=== PATIENT | female | born 1930 | race Caucasian/White ===

== ENCOUNTER 2019-01-07 15:37 | Inpatient (IN) | payer MEDICARE ==
[2019-01-07] MEDS ORDERED: Ondansetron PF 4 MG/2 ML Vial ONE ×2 (16:01→17:35)
[2019-01-07] MEDS ORDERED: Acetaminophen 500 MG TAB ONE (16:01)
[2019-01-07 16:54] LABS: Bilirubin Negative (Negative); Blood, Urine Negative (Negative); Clarity CLEAR (Clear); Glucose, Urine (Dipstick) Negative (Negative); Leukocyte Negative (Negative); Nitrite Negative (Negative); Protein, Urine (Dipstick) 30 mg/dL (Neg-Trace); Specific Gravity, Urine 1.011 (1.002-1.036); Urobilinogen 0.2 mg/dL (0.2-1.0)
[2019-01-07 16:56] LABS: Bacteria/HPF None Seen HPF (None Seen); Hyaline Casts/LPF 0-3 HYALINE CAST LPF (0-3 Hyaline); RBC/HPF 0-3 HPF (0-3); Squamous Epithelial None Seen HPF (0-3); WBC/HPF None Seen HPF (0-3)
[2019-01-07] MEDS ORDERED: hydrALAZINE 20 MG/ML VIAL ONE (17:21)
[2019-01-07] MEDS ORDERED: Dextrose 50% Abboject 50 ML SYRINGE SLOW IVP PRN (18:27)
[2019-01-07] MEDS ORDERED: hydrALAZINE 20 MG/ML VIAL SLOW IVP PRN (18:27)
[2019-01-07] MEDS ORDERED: Promethazine HCl 25 MG/ML VIAL IM PRN (18:27)
[2019-01-07] MEDS ORDERED: Ondansetron PF 4 MG/2 ML Vial IVP PRN (18:27)
[2019-01-07] MEDS ORDERED: traMADol HCl 50 MG TAB PO PRN ×2 (18:27)
[2019-01-07] MEDS ORDERED: Dextrose 5% in Water 1,000 ML IV PRN (18:27)
[2019-01-07] MEDS ORDERED: Acetaminophen 1,000 MG in Premix Bag 1 BAG IVPB SCH (18:27)
[2019-01-07] MEDS ORDERED: Promethazine HCl 25 MG/ML VIAL IVPB PRN (19:42)
--- NOTE | 2019-01-07 19:42 | HP ---
TRAUMA SURGEON: Dr. Nicolás Hedrick. CONSULTING PHYSICIAN: Dr. Hensley. HISTORY OF PRESENT ILLNESS: Ms. Roa is an 88-year-old female patient, who was transferred to our emergency department from [place]. Today, she was at [employer] and walked to her car without her cane, and when she came back to the building, she reports falling. She is unsure of the cause of her fall and she is unsure if she had a syncopal event. She reports that she did not hit her head; however, is having concussive type symptoms today. She was not able to ambulate after the accident and was found by other people leaving the [employer]. She arrived to the outside hospital ED via ambulance and received a chest x-ray as well as x-rays of the hip and pelvis. She also had a CT of the head and C-spine. Imaging results demonstrated a right femoral neck fracture. The patient is also very hypertensive with a systolic from the 200 and received pain medication with morphine, that did not significantly decrease her blood pressure below systolics of 180s. She did receive also an EKG, which demonstrated a normal rhythm with no ST changes and no ectopy. She denies photophobia or vomiting, but she does say that she is nauseous. She also denies diarrhea. REVIEW OF SYSTEMS: All additional review of systems negative except as indicated above. PAST MEDICAL HISTORY: Significant for DIANE (Mycobacterium avium intracellulare)as well as spinal stenosis. The patient is also taking a carvedilol, but is unsure of any previous cardiac issues. She does see a doctor regularly, but is not sure of why she takes carvedilol daily. ALLERGIES: NO KNOWN DRUG ALLERGIES. PAST SURGICAL HISTORY: She has had 2 spine surgeries for spinal stenosis and a herniated disk. She has also had a cholecystectomy. She has had bilateral mastectomies and a left hip surgery. SOCIAL HISTORY: She lives at home alone and uses a cane. She is very active and drives herself. She denies tobacco, alcohol, or drug use. MEDICATIONS: 1. Gabapentin. 2. Creon. 3. Omeprazole. 4. Carvedilol. 5. Multivitamin. PHYSICAL EXAMINATION: VITAL SIGNS: Temperature 98, blood pressure 174/86, pulse 98, respirations 20, and oxygen saturation 98% on 2L nasal cannula. PRIMARY SURVEY: Airway intact. Adequate breath sounds bilaterally. 2+ distal pulses in radials, femorals, and DP bilaterally. GCS is 15. Gross motor and sensation intact. No lacerations or external bleeding noted, bruising to the right elbow. SECONDARY ASSESSMENT: HEAD: Normocephalic and atraumatic. No gross palpable skull deformities or tenderness. EYES: Pupils 3 to 2, equal, round, reactive to light. ENT: No hemotympanum. No epistaxis. No septal hematoma. Midface stable to manipulation. No blood in the oropharynx. Dentition intact. No anterior neck injury/crepitus/tenderness. C-SPINE: No step-offs or deformities. Nontender. C-collar not in place. CHEST: Nontender. No crepitus. No abrasions or ecchymosis. Equal chest rise and fall. ABDOMEN: Soft, nontender, and nondistended. PELVIS: Stable to manipulation. Tenderness to the right hip. No abrasions or ecchymosis noted. RECTAL: Deferred. GENITOURINARY: Deferred. EXTREMITIES: Shortening of the right lower extremity. No abrasions or ecchymosis noted to the bilateral lower extremities. Bruising at the right elbow with no tenderness. 2+ radial/femoral/DP/PT pulses present bilaterally. BACK OR SPINE: No step-offs or deformities or tenderness to palpation of the thoracic or lumbar spine. No abrasions or ecchymosis noted. NEUROLOGIC: GCS is 15, 5/5 strength in bilateral artificial flowers starcher, plantar flexion, and dorsiflexion. Gross normal sensation x4 extremities. LABORATORY FINDINGS: White blood cell count 14.7, hemoglobin 12, hematocrit 36.7, and platelets 234. Sodium 137, potassium 4.3, chloride 100, carbon dioxide 25, BUN 16, creatinine 0.85, and glucose 98. INR 1.0. Troponin less than 0.010. BNP 203.9. CK 220. UA is not significant and negative. DIAGNOSTIC FINDINGS: Chest x-ray demonstrates no evidence of acute cardiopulmonary disease. X-ray of the right hip demonstrates a right femoral neck fracture. X-ray of the pelvis demonstrates an acute right femoral neck fracture. CT of the brain demonstrates no evidence of acute intracranial abnormalities. CT of the C-spine demonstrates no evidence of acute osseous abnormalities of the cervical spine. EKG demonstrated regular rate and rhythm with no ST changes or ectopy noted. ASSESSMENT: 1. Unwitnessed ground-level fall. 2. Right femoral neck fracture. 3. Hypertension, no previous history. 4. History of Mycobacterium avium intracellulare. 5. Spinal stenosis. 6. Acute traumatic pain. PLAN: The patient is pending evaluation by the orthopedic surgery team, but will likely go to the OR tomorrow. She can have a diet tonight and will be n.p.o. after midnight and will receive normal saline at 75 an hour. She did receive Ofirmev in the emergency department as well as 10 mg of IV hydralazine for blood pressure control. P.r.n. hydralazine will also be continued on the floor. She will receive pain control with IV Ofirmev, ibuprofen, and tramadol on the floor. She will also start her home dose of gabapentin, which is 300 mg in the morning and 900 mg in the evening. We will hold all other home medications at this time. She will be admitted to the tele department and needs to have an echo completed and read before she is able to go to the operating room with Orthopedic Surgery. We will hold the chemo DVT prophylaxis at this time. Physical and Occupational Therapy will see the patient postoperatively for discharge planning. She will either need to go to a snf facility or rehab facility as she is unable to return home after this type of injury. The patient was seen and examined with Dr. Hedrick today in the emergency department. Job ID: [id number]
[2019-01-07] MEDS: Sodium Chloride 0.9% 1,000 ML IV SCH (19:44)
[2019-01-07] MEDS: Senokot S 8.6-50 MG TAB PO SCH (19:45)
[2019-01-07] MEDS: Ibuprofen 600 MG TAB PO SCH (19:46)
[2019-01-07] MEDS ORDERED: Morphine 4 MG/ML VIAL SLOW IVP PRN (19:57)
[2019-01-07] MEDS ORDERED: Gabapentin 300 MG CAP PO SCH (20:00)
[2019-01-07] MEDS ORDERED: Ketorolac Tromethamine 30 MG/ML VIAL IVP SCH (20:00)
[2019-01-07] MEDS ORDERED: Promethazine HCl 12.5 MG in Sodium Chloride 0.9% 50 ML IVPB PRN (20:00)
[2019-01-07] MEDS ORDERED: Famotidine/PF 20 mg/2ml Vial SLOW IVP SCH (21:00)
[2019-01-07] MEDS ORDERED: Scopolamine 1.5 mg/72 hour Patch TD SCH (21:00)
[2019-01-07 23:17] VITALS: BMI 15.8
[2019-01-08] MEDS: Acetaminophen 1,000 MG in Premix Bag 1 BAG IVPB SCH ×5 (00:36→23:05)
[2019-01-08] MEDS: Ibuprofen 600 MG TAB PO SCH ×3 (05:35→22:30)
[2019-01-08 05:46] LABS: #Basophils 0.1 thou/uL (0.0-0.2); #Eosinphils 0.4 thou/uL (0.0-0.7); #Lymphocytes 1.6 thou/uL (1.20-3.40); #Monocytes 0.8 thou/uL (0.11-0.59); #Neutrophils 10.1 thou/uL (1.40-6.50); %Basophils 0.6 % (0.0-1.0); %Eosinophils 3.2 % (0.0-10.0); %Lymphocytes 12.1 % (21.0-51.0); %Monocytes 5.9 % (0.0-10.0); %Neutrophils 78.2 % (42.0-75.0); Hemoglobin 11.2 g/dL (12.0-16.0); Mean Corpuscular HGB CONC 31.8 g/dL (32.0-36.0); Mean Corpuscular Hemoglobin 30.7 pg (27.0-31.0); Mean Corpuscular Volume 96.6 fL (78.0-98.0); Platelet Count 295 thou/uL (130-400); RBC Distribution Width 12.6 % (11.5-14.5); Red Blood Cell (RBC) Count 3.65 mill/uL (4.20-5.40); White Blood Cell (WBC) Count 12.9 thou/uL (4.8-10.8)
[2019-01-08 05:53] LABS: INR-International Normal Ratio 1.1; Prothrombin Time 14.4 SEC (12.0-14.7)
[2019-01-08 06:17] LABS: Anion Gap 12 mmol/L (10-20); BUN (Urea Nitrogen) 16 mg/dL (9.8-20.1); Calc. Creatinine Clearance 28 mL/min (70-130); Calcium 8.2 mg/dL (7.8-10.44); Carbon Dioxide 24 mmol/L (23-31); Chloride 101 mmol/L (98-107); Estimated GFR-MDRD 61; Glucose 76 mg/dL (83-110); Magnesium 1.6 mg/dL (1.6-2.6); Phosphorus 4.2 mg/dL (2.3-4.7); Potassium 4.3 mmol/L (3.5-5.1); Sodium 133 mmol/L (136-145)
[2019-01-08] MEDS ORDERED: Magnesium 2 GM/50 ML 2 GM in Premix Bag 1 BAG IVPB SCH (08:15)
[2019-01-08] MEDS ORDERED: CEFAZOLIN 2 GM/50 ML BAG IVPB SCH (09:00)
[2019-01-08] MEDS ORDERED: Prevnar 13-Val Conj/PF 0.5 ML SYRINGE IM ONE (09:00)
[2019-01-08] MEDS: Polyethylene Glycol 3350 17 GM Packet PO SCH (09:17)
[2019-01-08] MEDS: Senokot S 8.6-50 MG TAB PO SCH ×2 (09:17→20:25)
[2019-01-08] MEDS: Gabapentin 300 MG CAP PO SCH ×2 (09:19→19:55)
--- NOTE | 2019-01-08 09:33 | CON ---
DATE OF CONSULTATION: 01/07/2019 CONSULTING PHYSICIAN: Dr. Hedrick. HISTORY OF PRESENT ILLNESS: Ms. Roa is an 88-year-old female, who was transferred from [facility]. The patient lives independently. She uses a cane for balance. She was at [employer] today when she lost her balance and fell outside the [employer]. She landed on the sidewalk. She had immediate pain. She was unable to ambulate. She did not hit her head. She does not clearly remember the events of the accident, however. She was transferred for further care and found to have a femoral neck fracture of the right hip. She is comfortable currently. Her blood pressure has been high and she does have a headache currently. REVIEW OF SYSTEMS: Positive for right hip pain and headache, also nausea. Otherwise, negative 10-point review of systems. PAST MEDICAL HISTORY: COPD, spinal stenosis, and possible heart disease. ALLERGIES: NO KNOWN DRUG ALLERGIES. PAST SURGICAL HISTORY: Lumbar spinal surgery for herniated disk, cholecystectomy. She has had mastectomy and implants and left hip bipolar hemiarthroplasty. SOCIAL HISTORY: The patient lives independently. She denies tobacco, alcohol, or drug use. DIAGNOSTIC DATA: X-rays of the pelvis and hips demonstrate a right femoral neck fracture, which is acute and slightly displaced. She has a left hip hemiarthroplasty in place without complication. PHYSICAL EXAMINATION: VITAL SIGNS: Temperature is 97.9, pulse is 86, respiratory rate 17, oxygen saturation 94%, and blood pressure is 184/79. GENERAL: She is alert and oriented, lying supine. She is nauseous. HEENT: Normocephalic and atraumatic. RESPIRATORY: Breathing comfortably. ABDOMEN: Soft, nontender, and nondistended. MUSCULOSKELETAL: The patient's right lower extremity has pain with motion. She has some slight shortening. She is able to flex and extend the foot and ankle. She has a palpable dorsalis pedis pulse. Upper extremities are atraumatic as well as the left lower extremity. IMPRESSION: Elderly female, who is a community ambulator with an acute femoral neck fracture of right hip. PLAN: The patient will need to go to the operating room. I discussed operative treatment, which would include bipolar hemiarthroplasty. I think this would be a best option. Screw fixation would have a high concern for failure. She wants to proceed with this. She will need medical optimization prior to surgery and an echocardiogram has been ordered. She needs blood pressure control as well. She will have pain control. She will have DVT prophylaxis and antibiotic prophylaxis. Job ID: [id number]
[2019-01-08] MEDS: Sodium Chloride 0.9% 1,000 ML IV SCH ×2 (10:01→19:50)
[2019-01-08] MEDS ORDERED: CEFAZOLIN 2 GM/50 ML BAG ONE (13:03)
[2019-01-08] MEDS ORDERED: Fentanyl 250 MCG/5 ML VIAL ONE (14:34)
--- NOTE | 2019-01-08 14:40 | PRG ---
DATE OF SERVICE: 01/08/2019 SUBJECTIVE: The patient was seen this morning sitting up in bed with family at bedside. No significant signs of distress, but reported some mild persistent nausea overnight. N.p.o. since midnight for OR today with Dr. Hensley. Echo pending with telemetry currently on. The patient denies vomiting, diarrhea, or abdominal pain. PHYSICAL EXAMINATION: VITAL SIGNS: Temperature 98.5, pulse 82, respirations 16, oxygen saturation 98% on 2 L nasal cannula, blood pressure 166/77. GENERAL: Alert and oriented, well-appearing elderly female, sitting up in bed. NEURO: GCS is 15. Alert and oriented x3. Gross motor and sensation intact. Pupils equal, round, reactive to light. PULMONARY: No signs of acute distress. Equal chest rise and fall. Lung waller clear bilaterally. HEART: Regular rate and rhythm. No murmurs, gallops, or rubs. GASTROINTESTINAL: Soft, nontender, nondistended with positive bowel sounds. EXTREMITIES: Gross motor and sensation intact. Tenderness to right femur area. 2+ pulses in all extremities. No significant swelling noted. LABORATORY FINDINGS: White blood cell count 11.9, hemoglobin 11.2, hematocrit 35.2, platelets 295. Sodium 133, potassium 4.3, chloride 101, carbon dioxide 26, BUN 16, creatinine 0.87, glucose 76, phos 4.2, magnesium 1.8. DIAGNOSTIC FINDINGS: Echo demonstrates LVEF estimated 55% to 60%. EA flow reversal noted suggestive of diastolic dysfunction, mild mitral regurg present, moderate tricuspid regurg, moderately elevated pulmonary artery pressure. ASSESSMENT: 1. Unwitnessed ground level fall. 2. Right femoral neck fracture. 3. Hypertension, no previous injury, improving now. 4. History of mycobacterium avium intracellulare. 5. History of spinal stenosis. 6. Acute traumatic pain. 7. Hypomagnesemia. PLAN: The patient is to go to the OR today with Dr. Hensley for fixation of her right femoral neck fracture. We will continue telemetry monitoring for now. Troponins previously negative. We will start her home medications postoperatively. Can have a regular diet and will discontinue IV fluids postoperatively. Physical and Occupational Therapy will see the patient postoperatively and complete rehab screen as well. The patient was seen and examined by Dr. Moran this morning during rounds. Job ID: [id number]
[2019-01-08] MEDS ORDERED: Ketamine 50 MG/ML (10ML VIAL) ONE (14:52)
[2019-01-08] MEDS ORDERED: CEFAZOLIN/Water 2 GM/20 ML SYRINGE SLOW IVP SCH (16:00)
[2019-01-08] MEDS ORDERED: Albuterol Sulfate HFA (OR ONLY) ONE (16:10)
[2019-01-08] MEDS ORDERED: Rocuronium Bromide 10 MG/ML (10ML VIAL) ONE (16:27)
[2019-01-08] MEDS ORDERED: Ondansetron PF 4 MG/2 ML Vial ONE (16:27)
[2019-01-08] MEDS ORDERED: Lidocaine 1% PF 5 ML VIAL ONE (16:27)
[2019-01-08] MEDS ORDERED: Glycopyrrolate 0.2 MG/ML 5 ML SYRINGE ONE (16:27)
[2019-01-08] MEDS ORDERED: PHENYLEPHRINE-NS 100 MCG/ML 10 ML SYRINGE ONE (16:27)
[2019-01-08] MEDS ORDERED: PROVENTIL INHALER 6.7 G (200 INHALATIONS) ONE (16:27)
[2019-01-08] MEDS ORDERED: hydrALAZINE 20 MG/ML VIAL ONE (16:28)
[2019-01-08] MEDS ORDERED: Fentanyl 100 MCG/2 ML VIAL ONE ×2 (16:33→17:17)
--- NOTE | 2019-01-08 16:39 | RAD ---
1 VIEW RIGHT HIP: Date: 01/08/19 HISTORY: Status post arthroplasty. FINDINGS: Based on this single image provided, no obvious malalignment. There are expected postoperative change s. IMPRESSION: Expected postoperative changes. POS: [facility]
--- NOTE | 2019-01-08 16:42 | RAD ---
1 VIEW PELVIS: Date: 01/08/19 HISTORY: Status post right hip arthroplasty. COMPARISON: 01/07/19. FINDINGS: There are expected postoperative changes compatible with right hip arthroplasty. Based on the image p rovided, no malalignment. IMPRESSION: Right hip arthroplasty change. POS: [facility]
[2019-01-08] MEDS: Pancrelipase DR 12000 1 CAP PO SCH (17:30)
[2019-01-08] MEDS: Mometasone/Formoterol 120 PUFF INHALER INH SCH (19:00)
[2019-01-08] MEDS: CEFAZOLIN 2 GM/50 ML-DEXTROSE 2 GM in Premix Bag 1 BAG IVPB SCH (19:51)
[2019-01-08] MEDS: Vit A,C & E/Lutein/Minerals Tablet PO SCH (20:25)
[2019-01-08] MEDS ORDERED: Gabapentin 300 MG CAP PO SCH (21:00)
[2019-01-08] MEDS ORDERED: Famotidine/PF 20 mg/2ml Vial SLOW IVP SCH (21:00)
--- NOTE | 2019-01-08 22:40 | OP ---
DATE OF PROCEDURE: 01/08/2019 OPERATION: Right hip bipolar hemiarthroplasty. PREOPERATIVE DIAGNOSIS: Right femoral neck fracture. POSTOPERATIVE DIAGNOSIS: Right femoral neck fracture. COMPLICATIONS: None. ESTIMATED BLOOD LOSS: 100 mL. COLLARETTE SEPARATOR: Davis Julio. INDICATIONS: Ms. Roa is an 88-year-old female who fell. She fractured her right femoral neck. She was indicated for bipolar hemiarthroplasty to restore anatomic alignment and promote healing. Goal of surgery is to promote early mobilization. At this point, the patient was taken to the operating room. Her right lower extremity was prepped and draped in sterile fashion in the lateral decubitus position. She was given intravenous antibiotics. She was sterilely draped. At this point, we made a posterior incision. We dissected down through the subcutaneous tissues to the fascia, which was incised. We then subperiosteally divided the short external rotators from the proximal femur. We then exposed the underlying hip capsule which was incised. Next, we removed the broken femoral head. We performed an osteotomy of the femoral neck. We then prepared the femur. We reamed the femur up to a size 6. We then broached the femur to a size 6. We trialed off our size 6 broach. At this point, we proceeded to check range of motion and stability with a +1.5 femoral head. The hip was stable. At this point, we then removed all trial components. We placed our final components appropriately. We reduced the hip. We then closed the Ethibond sutures through drill holes for the capsule and piriformis. We then closed the fascia and subcutaneous tissue. The patient was taken to the recovery room in good condition without complication. Job ID: [id number]
[2019-01-09] MEDS: CEFAZOLIN 2 GM/50 ML-DEXTROSE 2 GM in Premix Bag 1 BAG IVPB SCH (05:07)
[2019-01-09] MEDS: Ibuprofen 600 MG TAB PO SCH ×2 (05:50→08:30)
[2019-01-09 06:51] LABS: #Lymphocytes 0.8 thou/uL (1.20-3.40); #Monocytes 0.8 thou/uL (0.11-0.59); #Neutrophils 12.4 thou/uL (1.40-6.50); %Basophils 0.1 % (0.0-1.0); %Eosinophils 0.1 % (0.0-10.0); %Monocytes 5.6 % (0.0-10.0); %Neutrophils 88.3 % (42.0-75.0); Hemoglobin 8.7 g/dL (12.0-16.0); Mean Corpuscular Volume 97.1 fL (78.0-98.0); Mean Platelet Volume 6.8 fL (7.4-10.4); Platelet Count 267 thou/uL (130-400); RBC Distribution Width 12.5 % (11.5-14.5)
[2019-01-09 07:15] LABS: Anion Gap 13 mmol/L (10-20); BUN (Urea Nitrogen) 25 mg/dL (9.8-20.1); Calc. Creatinine Clearance 24 mL/min (70-130); Calcium 7.9 mg/dL (7.8-10.44); Carbon Dioxide 20 mmol/L (23-31); Chloride 105 mmol/L (98-107); Estimated GFR-MDRD 51; Glucose 100 mg/dL (83-110); Phosphorus 4.8 mg/dL (2.3-4.7); Potassium 4.4 mmol/L (3.5-5.1); Sodium 134 mmol/L (136-145)
[2019-01-09] MEDS: Mometasone/Formoterol 120 PUFF INHALER INH SCH ×2 (07:52→18:40)
[2019-01-09] MEDS: Vit A,C & E/Lutein/Minerals Tablet PO SCH ×2 (08:29→20:42)
[2019-01-09] MEDS: Acetaminophen 500 MG TAB PO SCH ×3 (08:29→20:42)
[2019-01-09] MEDS: Gabapentin 300 MG CAP PO SCH ×2 (08:30→20:42)
[2019-01-09] MEDS: Ascorbic Acid 500 mg Chewable Tablet PO SCH (08:30)
[2019-01-09] MEDS: Senokot S 8.6-50 MG TAB PO SCH ×2 (08:31→20:42)
[2019-01-09] MEDS: Cyanocobalamin (Vitamin B-12) 1,000 MCG TAB PO SCH (08:32)
[2019-01-09] MEDS ORDERED: Ibuprofen 100 MG/5 ML UDCUP PO PRN (08:47)
[2019-01-09] MEDS: Pancrelipase DR 12000 1 CAP PO SCH ×2 (10:06→18:32)
[2019-01-09] MEDS: Polyethylene Glycol 3350 17 GM Packet PO SCH (10:22)
[2019-01-09] MEDS ORDERED: Ondansetron ODT 4 MG TAB PO PRN (11:59)
--- NOTE | 2019-01-09 14:07 | PRG ---
DATE OF SERVICE: 01/09/2019 SUBJECTIVE: This is an 88-year-old female, status post fall from standing with right femoral neck fracture, postoperative day #1, status post right hip hemiarthroplasty with Dr. Hensley. No acute events overnight. The patient has no complaints this morning, denying any problems breathing and pain that is well controlled. She has been able to tolerate her breakfast this morning, has not eaten most of it. OBJECTIVE: VITAL SIGNS: Temperature 97.8, pulse 88, respirations 18, O2 sat 99 on 2 L of nasal cannula, and blood pressure 113/56. GENERAL: The patient is resting comfortably, sitting up in her chair. She is just finishing breakfast. HEENT: Normocephalic, atraumatic. Unremarkable otherwise. Placement on nasal cannula in place. CARDIOVASCULAR: Regular rate and rhythm with no murmurs, rubs, or gallops. RESPIRATORY: No signs of acute respiratory distress, equal rise and fall of chest. ABDOMEN: Soft, nontender. EXTREMITIES: The patient with postop dressings in place around the right hip and leg. Gross movement of all 4 extremities. LABORATORY DATA: WBC 14, hemoglobin 8.7, hematocrit 27.2, and neutrophils 88.3. Chem; sodium 134, carbon dioxide 20, BUN 25, creatinine 1.02, GFR 51, potassium 4.4, phosphorus 4.8, and magnesium 2.0. ASSESSMENT: 1. Unwitnessed ground level fall. 2. Right femoral neck fracture, postop day status post right hip hemiarthroplasty. 3. Hypertension. 4. History of spinal stenosis. 5. Hyponatremia, stable. 6. Anion gap metabolic acidosis. 7. Normocytic anemia. PLAN: 1. Continue current pain regimen as she is well controlled. We will discontinue her IV drugs. We will start her on oral p.o. pain medications. 2. Continue diet, since the patient is tolerating. We will discontinue IV fluids. 3. Hypertension. We will continue home Coreg due to blood pressures running low. holding if SBP less than 120 and/or if heart rate less than 60. 4. We will discontinue Robledo. 5. Wean O2 as tolerated as the patient did not have her requirements upon admission. She is nonhypoxic on 2 L to 3 L. This patient was seen and assessed by Dr. Nicolás Hedrick, who agrees with the plan above. Job ID: [id number] [facility]ENTERJulia
[2019-01-09] MEDS: Carvedilol 3.125 MG TAB PO SCH (15:29)
[2019-01-09] MEDS: Sodium Chloride 0.9% 1,000 ML IV SCH (16:35)
[2019-01-10] MEDS: Acetaminophen 500 MG TAB PO SCH ×2 (04:16→09:22)
[2019-01-10] MEDS: Mometasone/Formoterol 120 PUFF INHALER INH SCH (06:14)
[2019-01-10] MEDS ORDERED: Aspirin 81 mg Enteric Coated Tablet PO SCH (09:00)
[2019-01-10] MEDS: Polyethylene Glycol 3350 17 GM Packet PO SCH (09:22)
[2019-01-10] MEDS: Ascorbic Acid 500 mg Chewable Tablet PO SCH (09:22)
[2019-01-10] MEDS: Pancrelipase DR 12000 1 CAP PO SCH (09:22)
[2019-01-10] MEDS: Carvedilol 3.125 MG TAB PO SCH (09:23)
[2019-01-10] MEDS: Senokot S 8.6-50 MG TAB PO SCH (09:23)
[2019-01-10] MEDS: Vit A,C & E/Lutein/Minerals Tablet PO SCH (09:23)
[2019-01-10] MEDS: Cyanocobalamin (Vitamin B-12) 1,000 MCG TAB PO SCH (09:24)
[2019-01-10] MEDS: Gabapentin 300 MG CAP PO SCH (09:24)
[2019-01-10 11:44] VITALS: BP 137/73; TEMP 98
--- NOTE | 2019-01-11 08:49 | DIS ---
DATE OF ADMISSION: 01/07/2019 DATE OF DISCHARGE: 01/10/2019 ADMITTING ATTENDING: Nicolás Hedrick DO DISCHARGE ATTENDING: Nicolás Hedrick DO CONSULTS: 1. Orthopedics, Dr. Elliott Hensley. 2. PT and OT. PROCEDURE: Right hip bipolar hemiarthroplasty, 12/29/2018. IMAGING: Hip and pelvis x-ray: Right femoral neck fracture. PRIMARY DIAGNOSES: 1. Acute right femoral neck fracture. 2. Ground level fall. SECONDARY DIAGNOSES: 1. History of Mycobacterium avium intracellulare. 2. Spinal stenosis. 3. Hypertension. DISCHARGE MEDICATIONS: 1. Tylenol 500 mg p.o. q.6 hours p.r.n. for pain. 2. Vitamin C 1000 mg p.o. daily. 3. Aspirin 81 mg p.o. b.i.d. 4. Symbicort 2 puffs inhaled b.i.d. 5. Coreg 3.125 p.o. daily. 6. Vitamin B12 of 500 mg p.o. daily. 7. Gabapentin 300 mg p.o. daily, 900 mg p.o. at bedtime. 8. Hydralazine 10 mg p.o. IV push q.4 hours p.r.n. for blood pressure greater than 180. 9. DuoNeb 3 mL nebs q.4 hours p.r.n. for short of breath and wheezing. 10. Omeprazole 20 mg p.o. daily. 11. Creon one cap p.o. b.i.d. with meal. 12. Scopolamine patch 1.5 mg transdermal q.3 days. 13. MiraLAX 17 g p.o. daily. 14. Ultram 50 mg p.o. q.6 hours for severe pain. 15. Ultram 100 mg p.o. q.6 hours for breakthrough pain. 16. PreserVision one capsule p.o. b.i.d. MEDICATION CHANGES: 1. Home dose of Coreg was held due to low-normal blood pressure. Can resume in inpatient rehab as appropriate HISTORY OF PRESENT ILLNESS/HOSPITAL COURSE: Ms. Roa is an 88-year-old female patient, who was transferred to the emergency department from [place] after ground-level fall. She suffered from a right femoral neck fracture. Etiology of fall was unknown likely attributed to overall physical/gait instability. However, echo performed before surgery and was negative for acute or chronic cardiac findings. She received a right hip hemiarthroplasty with Dr. Hensley. Postoperative course was uncomplicated and the patient recovered well with good control of pain. Currently, she is stable to go for inpatient rehab for continued physical therapy. DISPOSITION: Stable. DISCHARGE INSTRUCTIONS: 1. Location: Home. 2. Diet: Regular diet. 3. Activity: As tolerated, please continue working with physical therapy. 4. Followup: a. Please follow up with PCP within 7 days. b. Please follow up with Orthopedic Surgeon, Dr. Elliott Hensley within 2 weeks. Job ID: [id number] [facility]
== END 2019-01-10 13:05 | disposition short-term general hospital (02) | DRG 470 ==
LOC: ERS 15:37 → 2NO 19:05 → SURG A 01-08 16:18
PROVIDERS: ADMIT Surgery; ATTEND Surgery
PROC: 0SRR0JZ Replacement of Right Hip Joint, Femoral Surface with Synthetic Substitute, Open Approach (ICD-10-PCS; principal; 2019-01-08)
DX: S72.001A Fracture of unspecified part of neck of right femur, initial encounter for closed fracture (principal); E87.2 Acidosis; E87.1 Hypo-osmolality and hyponatremia; I10 Essential (primary) hypertension; M48.00 Spinal stenosis, site unspecified; D64.9 Anemia, unspecified; W19.XXXA Unspecified fall, initial encounter; E83.42 Hypomagnesemia; J44.9 Chronic obstructive pulmonary disease, unspecified; Z90.49 Acquired absence of other specified parts of digestive tract; Z90.10 Acquired absence of unspecified breast and nipple; Z96.642 Presence of left artificial hip joint
CPT/HCPCS: 36415; 51702; 72170; 80048; 81003; 81015; 82550; 83735; 83880; 84100; 84484; 85025; 86850; 86900; 86901; 93005; 93306; 96361; 96374; 96375; 96376; G0390; J0131; J0360; J1885; J2001; J2270; J2405; J2550; J3010; J3475; J3490; J7050; S0028

== ENCOUNTER 2019-01-30 10:26 | Inpatient (IN) | payer MEDICARE ==
[~2019-01-30 10:26] MED LIST: ISOVUE-370 76%-LOCM 1 ML ONE
[2019-01-30 11:29] LABS: #Lymphocytes 0.6 thou/uL (1.20-3.40); #Monocytes 0.1 thou/uL (0.11-0.59); #Neutrophils 7.9 thou/uL (1.40-6.50); %Eosinophils 0.1 % (0.0-10.0); %Lymphocytes 6.4 % (21.0-51.0); %Monocytes 0.9 % (0.0-10.0); %Neutrophils 92.6 % (42.0-75.0); Hemoglobin 8.8 g/dL (12.0-16.0); Mean Corpuscular HGB CONC 30.3 g/dL (32.0-36.0); Mean Corpuscular Hemoglobin 29.9 pg (27.0-31.0); Mean Corpuscular Volume 98.8 fL (78.0-98.0); Mean Platelet Volume 6.3 fL (7.4-10.4); Platelet Count 569 thou/uL (130-400); RBC Distribution Width 14.2 % (11.5-14.5); Red Blood Cell (RBC) Count 2.94 mill/uL (4.20-5.40); White Blood Cell (WBC) Count 8.5 thou/uL (4.8-10.8)
[2019-01-30] MEDS ORDERED: Aspirin Chewable 81 MG TAB ONE (11:40)
[2019-01-30 11:46] LABS: PTT 41.4 SEC (22.9-36.1)
[2019-01-30 11:52] LABS: ALT (SGPT) 19 U/L (8-55); AST (SGOT) 39 U/L (5-34); Albumin 3.5 g/dL (3.4-4.8); Alkaline Phosphatase 89 U/L (40-150); Anion Gap 14 mmol/L (10-20); BUN (Urea Nitrogen) 38 mg/dL (9.8-20.1); Bilirubin, Total Less than 0.2 mg/dL (0.2-1.2); CK (CPK) 46 U/L (29-168); Calc. Creatinine Clearance 0 mL/min (70-130); Calcium 8.8 mg/dL (7.8-10.44); Carbon Dioxide 27 mmol/L (23-31); Chloride 101 mmol/L (98-107); Estimated GFR-MDRD 52; Globulin 3.8 g/dL (2.4-3.5); Glucose 111 mg/dL (83-110); Potassium 4.8 mmol/L (3.5-5.1); Protein, Total 7.3 g/dL (6.0-8.3); Sodium 137 mmol/L (136-145)
--- NOTE | 2019-01-30 12:23 | CT ---
CT ARTERIOGRAM CHEST WITH IV CONTRAST AND 3D MIP IMAGING: HISTORY: Dyspnea. FINDINGS: There is good contrast opacification of the pulmonary arteries and thoracic aorta with normal branchi ng of the great vessels at the aortic arch. Lungs are hyperinflated. A small amount of bilateral pleural fluid. There are multifocal areas of w edge-shaped peripheral parenchymal volume loss and patchy infiltrate at each lung base. Multiple non calcified nodules also involve each lung. The largest is in the anterior segment of the right upper lobe, measuring up to 1.0 cm greatest diameter on the axial images. IMPRESSION: 1. No CT evidence of pulmonary embolus. 2. Pulmonary hyperinflation with interstitial thickening and multifocal peripheral infiltrates. 3. Small nodules are present within each lung. It is not clear if these indeed represent a nodular/ neoplastic process or are also related to the widespread chronic interstitial-type lung disease. Ple ase consider followup CT chest in 6 months to evaluate for any change. 4. Small bilateral pleural effusions. POS: [facility]
[2019-01-30] MEDS ORDERED: Nitroglycerin 2% Ointment 1 INCH/1 GM Packet ONE (12:24)
[2019-01-30] MEDS ORDERED: Cefepime 2 GM in Sodium Chloride 0.9% 100 ML IVPB SCH (12:45)
[2019-01-30] MEDS ORDERED: Ondansetron PF 4 MG/2 ML Vial IVP PRN (13:27)
[2019-01-30] MEDS ORDERED: Acetaminophen 325 MG TAB PO PRN (13:27)
[2019-01-30] MEDS ORDERED: RENALLY ADJUST ABX IVPB PRN (13:27)
[2019-01-30] MEDS ORDERED: Ondansetron ODT 4 MG TAB PO PRN (13:27)
[2019-01-30] MEDS ORDERED: Calcium Carbonate 500 MG ChewTAB PO PRN (13:27)
[2019-01-30] MEDS ORDERED: Acetaminophen 650 MG Suppository PR PRN (13:27)
[2019-01-30] MEDS ORDERED: hydrALAZINE 20 MG/ML VIAL SLOW IVP PRN (13:32)
--- NOTE | 2019-01-30 14:04 | HP ---
PRIMARY CARE PHYSICIAN: None. The patient is currently at [facility] under the care of Dr. Carter. PRIMARY ROAD FREIGHT CONDUCTOR: Dr. Tino Reaves in [place]. CHIEF COMPLAINT: Altered mentation along with hypoxia at [facility]. 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 Last month, the patient was admitted to this facility with an episode of fall. Her workup was consistent with right femoral neck fracture. She underwent ORIF and was discharged to [facility] on January 10, 2019. The patient did well at the [facility]. She was participating in the physical therapy. Approximately four days ago, she was diagnosed with pneumonia and was started on ceftriaxone and azithromycin. Her WBC count was between 15,000 to 18,000 at that time. She also had intermittent fever over the last week, maximum up to 102.6, at the facility. This morning, the patient was lethargic and was found to have O2 saturation in mid 80s for which she was transferred to this facility. Her O2 saturations even on 6 L nasal cannula was in low 90s. She received IV Solu-Medrol and Lasix prior to ER arrival. PAST MEDICAL HISTORY: 1. Mycobacterium avium intracellulare infection. 2. Chronic back pain. 3. Hypertension. 4. Recent right femoral neck fracture due to ground level fall, status post ORIF. PAST SURGICAL HISTORY: 1. Two spine surgeries. 2. Left hip surgery. 3. Bilateral mastectomy. 4. Cholecystectomy. ALLERGIES: NO KNOWN DRUG ALLERGIES. CURRENT MEDICATIONS: Current medications at the [facility]; 1. IV ceftriaxone. 2. Azithromycin. 3. Nystatin swish and swallow. 4. Protonix 40 mg daily. 5. Aspirin 81 mg b.i.d. 6. Gabapentin 300 mg daily. 7. Remeron 7.5 mg at bedtime. 8. Carvedilol 6.25 mg b.i.d. 9. Gabapentin 900 mg at bedtime. 10. Dulera two puffs b.i.d. 11. Multivitamin one tablet daily. 12. Tramadol for pain control. SOCIAL HISTORY: The patient lives at home alone prior to the fall last month. She drives. She is independent of activities of daily living. She is DNR. Her surrogate decision makers are niece and the nephew. She used a cane prior to fall last month. No tobacco, alcohol, or drug use reported. FAMILY HISTORY: Negative for premature coronary artery disease. REVIEW OF SYSTEMS: All other review of systems reviewed and was found negative. PHYSICAL EXAMINATION: VITAL SIGNS: Vital signs this morning show a temperature of 99.7 with pulse rate of 81, respirations of 14 with a blood pressure of 155/65, O2 saturation was in mid 80s on room air. T-max was 101.5 yesterday per [facility] records. GENERAL: An 88-year-old female, in no apparent distress, ill-appearing. HEENT: Head is atraumatic, normocephalic. Sclerae anicteric. Dry mucous membranes. No oral lesion. NECK: Supple. No JVD. No neck stiffness. LUNGS: Showed bilateral rhonchi with scattered rales mainly at bases. No significant accessory muscle use. HEART: S1 and S2 present. Regular rate and rhythm. 2/6 systolic murmur over the mitral area. ABDOMEN: Soft, nontender. Bowel sounds present. EXTREMITIES: No edema or calf tenderness. NEUROLOGIC: Grossly nonfocal. Moves all 4 extremities. PSYCHIATRIC: Alert, awake, and oriented x3. SKIN: Warm and dry. LYMPH NODES: No palpable lymph nodes in the neck. PERIPHERAL VASCULAR: Radial pulses palpable bilaterally. MUSCULOSKELETAL: No joint swelling tenderness. LABORATORY FINDINGS: WBC count yesterday was 16.6, this morning was 8.5 with platelet count 569; hemoglobin 8.8. PT/INR in normal range. PTT 41.4. Lactic acid 1.3. BNP was 977. LFTs showed AST of 39 with normal ALT and alkaline phosphatase. Troponin was negative. BUN was 38 with creatinine 1.01. Creatinine 2 days ago was 1.56. Urinalysis was negative last week. Influenza testing two days ago was negative. Blood culture four days ago is negative so far. Influenza testing two or three days ago was normal. Chest x-ray by my review showed pulmonary vascular congestion with increased bronchopulmonary markings. CT angiogram of the chest showed multifocal peripheral infiltrates with interstitial thickening and pulmonary hyperinflation with small bilateral pleural effusions. IMPRESSION: 1. Acute hypoxic respiratory failure. 2. Acute on chronic diastolic heart failure exacerbation. 3. Sepsis due to healthcare-associated pneumonia, suspected pneumococcal, rule out aspiration. 4. Acute kidney injury on chronic kidney disease stage 3, improving. 5. Chronic anemia. 6. Hypertension. 7. History of mycobacterium avium intracellulare. 8. Spinal stenosis. 9. Small bilateral pleural effusion. 10. Moderate tricuspid regurgitation/mild mitral regurgitation. PLAN: 1. The patient will be monitored on the medical floor. She is DNR. We will continue cefepime and Levaquin that had been started in the ER. Gentle diuresis. Consult Physical Therapy, Occupational Therapy and Speech Therapy. Resume selected medications. 2. Nebulizer treatments. Consult Pulmonary, Dr. Roy. Continue Dulera. 3. Plan was discussed with the patient and the family at the bedside, they stated understanding. 4. The patient will require 2 to 3 days for stabilization. Job ID: [id number]
[2019-01-30 14:47] LABS: Troponin I 0.011 ng/mL (< 0.028)
[2019-01-30 15:59] LABS: Bilirubin Negative (Negative); Blood, Urine Negative (Negative); Clarity CLEAR (Clear); Glucose, Urine (Dipstick) Negative (Negative); Leukocyte Negative (Negative); Nitrite Negative (Negative); Protein, Urine (Dipstick) Negative (Neg-Trace); Specific Gravity, Urine 1.022 (1.002-1.036); Urobilinogen 0.2 mg/dL (0.2-1.0)
[2019-01-30 17:51] LABS: Troponin I Less than 0.010 ng/mL (< 0.028)
[2019-01-30 18:21] VITALS: BMI 15.0
[2019-01-30] MEDS: Carvedilol 3.125 MG TAB PO SCH (18:45)
[2019-01-30] MEDS: Nystatin 500,000 UNITS/5 ML UDCUP SSW SCH ×2 (18:46→20:37)
[2019-01-30] MEDS: Mometasone/Formoterol 120 PUFF INHALER INH SCH (18:56)
[2019-01-30] MEDS: Gabapentin 300 MG CAP PO SCH (20:36)
[2019-01-30] MEDS: Aspirin 81 mg Enteric Coated Tablet PO SCH (20:36)
[2019-01-30] MEDS: Mirtazapine 15 MG TAB PO SCH (20:36)
[2019-01-30] MEDS: Nystatin Powder 15 GM BOT TOP SCH (20:42)
[2019-01-31 05:58] LABS: #Monocytes 0.9 thou/uL (0.11-0.59); #Neutrophils 4.2 thou/uL (1.40-6.50); %Basophils 0.6 % (0.0-1.0); %Eosinophils 0.1 % (0.0-10.0); %Lymphocytes 16.3 % (21.0-51.0); %Monocytes 14.3 % (0.0-10.0); %Neutrophils 68.7 % (42.0-75.0); Hemoglobin 8.6 g/dL (12.0-16.0); Mean Corpuscular HGB CONC 31.1 g/dL (32.0-36.0); Mean Corpuscular Hemoglobin 30.9 pg (27.0-31.0); Mean Corpuscular Volume 99.5 fL (78.0-98.0); Mean Platelet Volume 6.3 fL (7.4-10.4); Platelet Count 487 thou/uL (130-400); RBC Distribution Width 14.1 % (11.5-14.5); Red Blood Cell (RBC) Count 2.77 mill/uL (4.20-5.40); White Blood Cell (WBC) Count 6.1 thou/uL (4.8-10.8)
[2019-01-31 06:08] LABS: Phosphorus 3.8 mg/dL (2.3-4.7)
[2019-01-31 06:28] LABS: ALT (SGPT) 15 U/L (8-55); AST (SGOT) 29 U/L (5-34); Albumin 3.1 g/dL (3.4-4.8); Alkaline Phosphatase 67 U/L (40-150); Anion Gap 13 mmol/L (10-20); BUN (Urea Nitrogen) 34 mg/dL (9.8-20.1); Bilirubin, Total 0.2 mg/dL (0.2-1.2); Calc. Creatinine Clearance 26 mL/min (70-130); Calcium 8.5 mg/dL (7.8-10.44); Carbon Dioxide 28 mmol/L (23-31); Chloride 103 mmol/L (98-107); Estimated GFR-MDRD 62; Globulin 3.3 g/dL (2.4-3.5); Glucose 105 mg/dL (83-110); Magnesium 1.9 mg/dL (1.6-2.6); Potassium 4.7 mmol/L (3.5-5.1); Protein, Total 6.4 g/dL (6.0-8.3); Sodium 139 mmol/L (136-145)
[2019-01-31] MEDS: Mometasone/Formoterol 120 PUFF INHALER INH SCH ×2 (06:50→18:21)
[2019-01-31] MEDS ORDERED: Furosemide 20 MG/2 ML VIAL SLOW IVP SCH (09:00)
[2019-01-31] MEDS: Aspirin 81 mg Enteric Coated Tablet PO SCH ×2 (09:03→20:35)
[2019-01-31] MEDS: Saccharomyces boulardii 250 MG CAP PO SCH (09:03)
[2019-01-31] MEDS: Nystatin 500,000 UNITS/5 ML UDCUP SSW SCH ×4 (09:04→20:36)
[2019-01-31] MEDS: Gabapentin 300 MG CAP PO SCH ×2 (09:04→20:35)
[2019-01-31] MEDS: Nystatin Powder 15 GM BOT TOP SCH ×2 (09:04→20:36)
[2019-01-31] MEDS: Carvedilol 3.125 MG TAB PO SCH ×2 (09:04→18:14)
--- NOTE | 2019-01-31 10:18 | CON ---
DATE OF CONSULTATION: 01/31/2019 CONSULTING PHYSICIAN: Boubacar Carmen. REASON FOR CONSULTATION: Pneumonia. HISTORY OF PRESENT ILLNESS: Ms. Roa is an 88-year-old female, who was brought to this facility from [facility] in [place], where she had been recuperating after an ORIF of the right femoral neck back in December. Yesterday, she developed a high fever. She was lethargic. She was found to have low O2 sats and she was sent here for further therapy. She feels better today and has no acute complaints and says her breathing is back to baseline. PAST MEDICAL HISTORY: 1. She was treated for Mycobacterium avium intracellulare infection about 10 years ago. She received a year and half to 2 years of antibiotics for that, has been followed by [facility] former machine operator in [place]. 2. Chronic back pain. 3. Hypertension. 4. Right femoral neck fracture. 5. Spine surgeries. 6. Left hip surgery. 7. Bilateral mastectomy with subsequent breast implants. 8. Cholecystectomy. ALLERGIES: NONE. MEDICATIONS: Prior to admission; 1. Dulera 100/5 two puffs twice daily. 2. Ultram 100 mg every 6 hours as needed. 3. Phenergan cough syrup with dextromethorphan 1 teaspoon b.i.d. as needed. 4. Symbicort 80/4.5 two puffs twice daily. 5. Zofran. 6. DuoNeb. 7. Apresoline. 8. Creon. 9. Mirtazapine 7.5 mg daily. 10. PreserVision. 11. Vitamins. 12. MiraLAX. 13. Protonix. 14. Nystatin. 15. Gabapentin. 16. Ecotrin 81 mg daily. 17. Vitamin C 1000 mg daily. 18. Norvasc 5 mg daily. 19. Coreg 6.25 mg b.i.d. On an inpatient basis, carvedilol has been continued. She is also on Lasix. She has been placed on Levaquin and cefepime. SOCIAL HISTORY: She is a nonsmoker. Does not consume alcohol. She was previously independent with her activities of daily living prior to admission for hip fracture. FAMILY MEDICAL HISTORY: Negative for lung disease. REVIEW OF SYSTEMS: Twelve-point review of systems is otherwise negative except for hearing loss. PHYSICAL EXAMINATION: VITAL SIGNS: Temperature 97.9, pulse 81, respirations 14, O2 sats 98% on 3 L, and blood pressure 162/71. The patient is 5 feet and 2 inches, weighs 81 pounds. GENERAL: She is awake and alert, and in no distress. She is communicative and does not appear to be demented. HEENT: Pupils are reactive. Sclerae are anicteric. Oropharynx has whitish plaque on the tongue. NECK: Without adenopathy or JVD. LUNGS: She has some scattered inspiratory crackles bilaterally. CARDIAC: S1 and S2 regular without audible murmur. ABDOMEN: Soft, nontender, and nondistended. EXTREMITIES: No clubbing, cyanosis, or edema. She does have some muscle wasting. LABORATORY DATA: White blood cell count 6.1, hemoglobin 8.6, hematocrit 27.6, and platelet count 47. Sodium 139, potassium 4.7, chloride 103, CO2 of 28, BUN 34, creatinine 0.8, and glucose 105. IMAGING DATA: The CT of her chest demonstrates breast implants. She has bilateral very small effusions. She has scattered nodular changes bilaterally, which would probably be characterized as chronic, although I do not have previous scan to compare this to, but I see no active infiltrative changes. BNP level was 976. ASSESSMENT: 1. The patient is presenting with high fever at the time of admission, which may be due to a lung issue, although it is not clear on the CT. She could also have just some systemic viral infection such as influenza, which may have just intermittently tested negative. 2. Previous history of Mycobacterium avium infection, which does not seem to be active at the current time. 3. Anemia due to blood loss. 4. Acute diastolic cardiac dysfunction. 5. Acute hypoxic respiratory failure. RECOMMENDATIONS: I think the current treatment with the cefepime and Levaquin is appropriate. Continue with the breathing treatments as you are doing. Gentle diuresis. I think she should be able to go back to the nursing facility very soon. I will be happy to follow with you. Job ID: [id number]
[2019-01-31] MEDS ORDERED: Cefepime 1 GM in Sodium Chloride 0.9% 100 ML IVPB SCH (13:00)
[2019-01-31] MEDS: Mirtazapine 15 MG TAB PO SCH (20:35)
--- NOTE | 2019-01-31 21:34 | PDOC.PN ---
- Subjective Encounter Start Date: 01/31/19 Encounter Start Time: 09:45 Patient seen and examined for Resp failure. Feels somewhat better. Mild productive cough. No new complaints. No overnight events - Objective Resuscitation Status - Order Detail: 01/30/19 13:27 Resuscitation Status Routine Resuscitation Status: DNAR: NO Resuscitation Discussed with: confirmed with DPOA MAR Reviewed: Yes Vital Signs & Weight: Vital Signs (12 hours) Temp Pulse Pulse Resp BP BP Pulse Ox 01/31/19 20:42 97.8 F 82 16 132/61 98 01/31/19 18:20 85 18 92 L 01/31/19 16:00 97.8 F 84 16 150/74 H 92 L 01/31/19 14:28 80 16 01/31/19 12:00 97.9 F 84 16 114/67 91 L 01/31/19 10:22 77 16 95 01/31/19 09:56 70 145/71 H Pulse Ox 01/31/19 20:42 01/31/19 18:20 01/31/19 16:00 01/31/19 14:28 01/31/19 12:00 01/31/19 10:22 01/31/19 09:56 99 Weight Admit Weight 82 lb Weight 81 lb 14.4 oz I&O: 01/30/19 01/31/19 02/01/19 06:59 06:59 06:59 Intake Total 75 Balance 75 Result Diagrams: 02/01/19 07:41 02/01/19 07:41 Phys Exam - Physical Examination Constitutional: NAD Respiratory: no wheezing, no rhonchi Cardiovascular: RRR, no rub Gastrointestinal: soft, positive bowel sounds Musculoskeletal: no edema Neurological: moves all 4 limbs Dx/Plan - Plan DVT proph w/SCDs (with ASA BID per Ortho) 1. Acute hypoxic respiratory failure. 2. Acute on chronic diastolic heart failure exacerbation. 3. Sepsis due to healthcare-associated pneumonia, suspected pneumococcal. 4. Acute kidney injury on chronic kidney disease stage 3, improving. 5. Chronic anemia. 6. Hypertension. 7. History of mycobacterium avium intracellulare. 8. Spinal stenosis. 9. Small bilateral pleural effusion. 10. Moderate tricuspid regurgitation/mild mitral regurgitation. PLAN: Cont IV Cefepime/Levaquin Cont IV Lasix Cont other meds as below Resume selected home meds AM labs Review of Systems - Review of Systems Cardiovascular: negative: chest pain, palpitations, orthopnea, paroxysmal nocturnal dyspnea, edema, light headedness, other Gastrointestinal: negative: Nausea, Vomiting, Abdominal Pain, Diarrhea, Constipation, Melena, Hematochezia, Other - Medications/Allergies Allergies/Adverse Reactions: Allergies Allergy/AdvReac Type Severity Reaction Status Date / Time No Known Drug Allergies Allergy Verified 01/10/19 15:31 Medications: Current Medications Acetaminophen (Tylenol) 650 mg PO Q4H PRN PRN Reason: Headache/Fever/Mild Pain (1-3) Acetaminophen (Tylenol) 650 mg CO Q4H PRN PRN Reason: Headache/Fever/Mild Pain (1-3) Albuterol/Ipratropium (Duoneb) 3 ml NEB [id number] [facility] Last Admin: 01/31/19 18:20 Dose: 3 ml Albuterol/Ipratropium (Duoneb) 3 ml NEB [id number] PRN PRN Reason: SOB &/or Wheezing Aspirin (Ecotrin) 81 mg PO BID [facility] Last Admin: 01/31/19 20:35 Dose: 81 mg Calcium Carbonate (Tums) 1,000 mg PO Q4H PRN PRN Reason: Heartburn or Indigestion Carvedilol (Coreg) 3.125 mg PO BID-[facility] Last Admin: 01/31/19 18:14 Dose: 3.125 mg Furosemide (Lasix) 20 mg SLOW IVP DAILY [facility] Last Admin: 01/31/19 09:03 Dose: 20 mg Gabapentin (Neurontin) 300 mg PO BID [facility] Last Admin: 01/31/19 20:35 Dose: 300 mg Hydralazine HCl (Apresoline) 5 mg SLOW IVP Q4H PRN PRN Reason: SBP Greater Than 180 Cefepime HCl 1 gm/ Sodium (Chloride) 100 mls @ 200 mls/hr IVPB 1300 [facility] Last Admin: 01/31/19 13:49 Dose: 100 mls Levofloxacin 250 mg/ Device 50 mls @ 100 mls/hr IVPB 1400 [facility] Last Admin: 01/31/19 14:31 Dose: 50 mls Mirtazapine (Remeron) 7.5 mg PO HS [facility] Last Admin: 01/31/19 20:35 Dose: 7.5 mg Miscellaneous Medication (Pharmacy To Dose) 1 each IVPB PRN PRN PRN Reason: Pharmacy to dose Mometasone Furoate/Formoterol Fumar (Dulera 200 Mcg/5 Mcg Inhaler) 2 puff INH BID-RT [facility] Last Admin: 01/31/19 18:21 Dose: 2 puff Nystatin (Mycostatin) 500,000 units SSW QID [facility] Last Admin: 01/31/19 20:36 Dose: 500,000 units Nystatin (Mycostatin Powder) 0 gm TOP BID [facility] Last Admin: 01/31/19 20:36 Dose: 1 applic Ondansetron HCl (Zofran Odt) 4 mg PO Q6H PRN PRN Reason: Nausea/Vomiting Ondansetron HCl (Zofran) 4 mg IVP Q6H PRN PRN Reason: Nausea/Vomiting Pantoprazole Sodium (Protonix) 40 mg PO DAILY [facility] Last Admin: 01/31/19 09:04 Dose: 40 mg Saccharomyces Boulardii (Florastor) 250 mg PO DAILY [facility] Last Admin: 01/31/19 09:03 Dose: 250 mg Sodium Chloride (Flush - Normal Saline) 10 ml IVF PRN PRN PRN Reason: Saline Flush
[2019-02-01] MEDS: Mometasone/Formoterol 120 PUFF INHALER INH SCH ×2 (06:42→20:03)
[2019-02-01 07:57] LABS: #Lymphocytes 1.7 thou/uL (1.20-3.40); #Monocytes 1.1 thou/uL (0.11-0.59); %Basophils 0.5 % (0.0-1.0); %Eosinophils 0.3 % (0.0-10.0); %Lymphocytes 21.8 % (21.0-51.0); %Monocytes 14.1 % (0.0-10.0); %Neutrophils 63.4 % (42.0-75.0); Hemoglobin 9.5 g/dL (12.0-16.0); Mean Corpuscular HGB CONC 31.7 g/dL (32.0-36.0); Mean Corpuscular Hemoglobin 31.4 pg (27.0-31.0); Mean Corpuscular Volume 99.1 fL (78.0-98.0); Mean Platelet Volume 6.4 fL (7.4-10.4); Platelet Count 521 thou/uL (130-400); RBC Distribution Width 14.2 % (11.5-14.5); Red Blood Cell (RBC) Count 3.03 mill/uL (4.20-5.40); White Blood Cell (WBC) Count 7.8 thou/uL (4.8-10.8)
[2019-02-01 08:10] LABS: ALT (SGPT) 17 U/L (8-55); AST (SGOT) 33 U/L (5-34); Albumin 3.3 g/dL (3.4-4.8); Alkaline Phosphatase 65 U/L (40-150); Anion Gap 14 mmol/L (10-20); BUN (Urea Nitrogen) 26 mg/dL (9.8-20.1); Bilirubin, Total 0.2 mg/dL (0.2-1.2); Calc. Creatinine Clearance 30 mL/min (70-130); Calcium 8.7 mg/dL (7.8-10.44); Carbon Dioxide 31 mmol/L (23-31); Chloride 98 mmol/L (98-107); Estimated GFR-MDRD 66; Globulin 3.5 g/dL (2.4-3.5); Glucose 84 mg/dL (83-110); Magnesium 1.7 mg/dL (1.6-2.6); Protein, Total 6.8 g/dL (6.0-8.3); Sodium 139 mmol/L (136-145)
[2019-02-01] MEDS: Aspirin 81 mg Enteric Coated Tablet PO SCH ×2 (08:15→20:37)
[2019-02-01] MEDS: Saccharomyces boulardii 250 MG CAP PO SCH (08:16)
[2019-02-01] MEDS: Gabapentin 300 MG CAP PO SCH ×2 (08:16→20:38)
[2019-02-01] MEDS: Carvedilol 3.125 MG TAB PO SCH ×2 (08:16→17:10)
[2019-02-01 08:20] LABS: Phosphorus 2.9 mg/dL (2.3-4.7)
[2019-02-01] MEDS: Nystatin Powder 15 GM BOT TOP SCH ×2 (08:55→20:38)
[2019-02-01] MEDS: Nystatin 500,000 UNITS/5 ML UDCUP SSW SCH ×4 (08:55→20:38)
--- NOTE | 2019-02-01 09:48 | PRG ---
DATE OF SERVICE: 02/01/2019 SUBJECTIVE: The patient was sitting up and eating breakfast this morning. She feels well and has no acute complaints. OBJECTIVE: VITAL SIGNS: Temperature 96.8, pulse 81, respirations 18, O2 saturation 98%, and blood pressure 164/81. HEENT: Unremarkable. NECK: No JVD. CHEST: Clear to auscultation. CARDIAC: S1 and S2, regular. ABDOMEN: Soft. EXTREMITIES: No edema. LABORATORY DATA: White blood cell count 7.8, hematocrit 30, platelet count 561. Sodium 139, potassium 4, creatinine 0.8, glucose 84. ASSESSMENT: 1. Pneumonia that is responding to antibiotics. 2. History of previous mycobacterium avium infection. 3. Anemia due to blood loss. PLAN: Continue the antibiotics. Switch over to oral therapy at any time. She should be able to go back to home tomorrow. Job ID: [id number]
[2019-02-01] MEDS ORDERED: Furosemide 40 MG TAB PO SCH (10:00)
[2019-02-01] MEDS: Cefdinir 300 MG CAP PO SCH (20:37)
[2019-02-01] MEDS: Mirtazapine 15 MG TAB PO SCH (20:37)
--- NOTE | 2019-02-01 23:09 | PDOC.PN ---
- Subjective Encounter Start Date: 02/01/19 Encounter Start Time: 09:30 Patient seen and examined for Pneumonia/Volume overload. No new complaints. SOB improving. Dry cough. No overnight events - Objective Resuscitation Status - Order Detail: 01/30/19 13:27 Resuscitation Status Routine Resuscitation Status: DNAR: NO Resuscitation Discussed with: confirmed with DPOA MAR Reviewed: Yes Vital Signs & Weight: Vital Signs (12 hours) Temp Pulse Pulse Pulse Resp BP BP 02/01/19 22:23 79 16 02/01/19 20:36 97.8 F 79 16 02/01/19 20:03 89 20 02/01/19 19:45 02/01/19 14:35 79 89 109/70 117/70 02/01/19 13:39 79 14 BP Pulse Ox Pulse Ox Pulse Ox 02/01/19 22:23 96 02/01/19 20:36 118/74 96 02/01/19 20:03 93 L 02/01/19 19:45 96 02/01/19 14:35 98 93 L 02/01/19 13:39 98 Weight Admit Weight 82 lb Weight 89 lb 9.6 oz I&O: 01/31/19 02/01/19 02/02/19 06:59 06:59 06:59 Intake Total 75 460 Balance 75 460 Result Diagrams: 02/01/19 07:41 02/01/19 07:41 Phys Exam - Physical Examination Constitutional: NAD Respiratory: no wheezing B/L rhonchi Cardiovascular: RRR, no rub Gastrointestinal: soft, non-tender, positive bowel sounds Musculoskeletal: no edema Dx/Plan - Plan DVT proph w/SCDs 1. Acute hypoxic respiratory failure. improving 2. Acute on chronic diastolic heart failure exacerbation. 3. Sepsis due to healthcare-associated pneumonia, suspected pneumococcal. 4. Acute kidney injury on chronic kidney disease stage 3, improving. 5. Chronic anemia. 6. Hypertension. 7. History of mycobacterium avium intracellulare. 8. Spinal stenosis. 9. Small bilateral pleural effusion. 10. Moderate tricuspid regurgitation/mild mitral regurgitation. PLAN: Change Atbx/Lasix to PO Cont current meds as below DC in AM if stable Review of Systems - Review of Systems Constitutional: negative: fever, chills, sweats, weakness, malaise, other Gastrointestinal: negative: Nausea, Vomiting, Abdominal Pain, Diarrhea, Constipation, Melena, Hematochezia, Other - Medications/Allergies Allergies/Adverse Reactions: Allergies Allergy/AdvReac Type Severity Reaction Status Date / Time No Known Drug Allergies Allergy Verified 01/10/19 15:31 Medications: Current Medications Acetaminophen (Tylenol) 650 mg PO Q4H PRN PRN Reason: Headache/Fever/Mild Pain (1-3) Acetaminophen (Tylenol) 650 mg [place] Q4H PRN PRN Reason: Headache/Fever/Mild Pain (1-3) Albuterol/Ipratropium (Duoneb) 3 ml NEB [id number] [facility] Last Admin: 02/01/19 22:23 Dose: 3 ml Albuterol/Ipratropium (Duoneb) 3 ml NEB [id number] PRN PRN Reason: SOB &/or Wheezing Aspirin (Ecotrin) 81 mg PO BID [facility] Last Admin: 02/01/19 20:37 Dose: 81 mg Calcium Carbonate (Tums) 1,000 mg PO Q4H PRN PRN Reason: Heartburn or Indigestion Carvedilol (Coreg) 3.125 mg PO BID-[facility] Last Admin: 02/01/19 17:10 Dose: 3.125 mg Cefdinir (Omnicef) 300 mg PO BID [facility] Last Admin: 02/01/19 20:37 Dose: 300 mg Furosemide (Lasix) 40 mg PO DAILY-AC [facility] Gabapentin (Neurontin) 300 mg PO BID [facility] Last Admin: 02/01/19 20:38 Dose: 300 mg Hydralazine HCl (Apresoline) 5 mg SLOW IVP Q4H PRN PRN Reason: SBP Greater Than 180 Levofloxacin (Levaquin) 500 mg PO 0600 [facility] Mirtazapine (Remeron) 7.5 mg PO HS [facility] Last Admin: 02/01/19 20:37 Dose: 7.5 mg Miscellaneous Medication (Pharmacy To Dose) 1 each IVPB PRN PRN PRN Reason: Pharmacy to dose Mometasone Furoate/Formoterol Fumar (Dulera 200 Mcg/5 Mcg Inhaler) 2 puff INH BID-RT [facility] Last Admin: 02/01/19 20:03 Dose: 2 puff Nystatin (Mycostatin) 500,000 units SSW QID [facility] Last Admin: 02/01/19 20:38 Dose: Not Given Nystatin (Mycostatin Powder) 0 gm TOP BID [facility] Last Admin: 02/01/19 20:38 Dose: 1 applic Ondansetron HCl (Zofran Odt) 4 mg PO Q6H PRN PRN Reason: Nausea/Vomiting Ondansetron HCl (Zofran) 4 mg IVP Q6H PRN PRN Reason: Nausea/Vomiting Pantoprazole Sodium (Protonix) 40 mg PO DAILY [facility] Last Admin: 02/01/19 08:57 Dose: Not Given Saccharomyces Boulardii (Florastor) 250 mg PO DAILY [facility] Last Admin: 02/01/19 08:16 Dose: 250 mg Sodium Chloride (Flush - Normal Saline) 10 ml IVF PRN PRN PRN Reason: Saline Flush
[2019-02-02] MEDS: Mometasone/Formoterol 120 PUFF INHALER INH SCH (06:10)
[2019-02-02] MEDS: Nystatin 500,000 UNITS/5 ML UDCUP SSW SCH (07:00)
[2019-02-02] MEDS ORDERED: Furosemide 40 MG TAB PO SCH (07:30)
[2019-02-02] MEDS: Saccharomyces boulardii 250 MG CAP PO SCH (08:02)
[2019-02-02] MEDS: Cefdinir 300 MG CAP PO SCH (08:02)
[2019-02-02] MEDS: Carvedilol 3.125 MG TAB PO SCH (08:02)
[2019-02-02] MEDS: Aspirin 81 mg Enteric Coated Tablet PO SCH (08:02)
[2019-02-02] MEDS: Gabapentin 300 MG CAP PO SCH (08:03)
[2019-02-02] MEDS: Nystatin Powder 15 GM BOT TOP SCH (08:03)
--- NOTE | 2019-02-02 08:27 | PRG ---
DATE OF SERVICE: 02/02/2019 SUBJECTIVE: The patient is doing reasonably well. She is expected to be discharged later today. OBJECTIVE: VITAL SIGNS: O2 saturation is 96% on 2 L, pulse 75, respirations 18. HEENT: Unremarkable. NECK: No JVD. LUNGS: Clear without wheezing or rhonchi. CARDIAC: S1, S2. Regular. ABDOMEN: Soft. EXTREMITIES: No edema. ASSESSMENT: 1. Pneumonia. 2. History of Mycobacterium avium infection, which I do not think is active at this time. 3. Anemia due to chronic blood loss. PLAN: The patient is cleared to go home. There are no further pulmonary concerns. I would finish out a total of 7 to 10 days of antibiotics. Job ID: [id number]
[2019-02-02 08:37] VITALS: BP 137/82; TEMP 98.1
--- NOTE | 2019-02-02 09:10 | DIS ---
DATE OF ADMISSION: 01/30/2019 DATE OF DISCHARGE: 02/02/2019 DISCHARGE DISPOSITION: To custodial facility. CODE STATUS: Do not resuscitate. The patient was seen and examined on the day of discharge. Denies any new complaints. No chest pain, shortness of breath, or palpitations. Family at the bedside. They agree with current plan. FOLLOWUP: 1. Follow up with Dr. Carter at the nursing facility. 2. Follow up with primary dramatic teacher, Dr. Tino Reaves, in [place]. DISCHARGE MEDICATION: 1. Omnicef 300 mg b.i.d. for 1 more week. 2. Levaquin 500 mg daily for 1 more week. 3. Probiotics daily. 4. Lasix 40 mg daily as needed for edema or weight gain. All other home medications were left unchanged. 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 Please refer to the history and physical for further details. The patient was admitted to the hospital with a diagnosis of acute hypoxic respiratory failure secondary to pneumonia as well as diastolic heart failure exacerbation. She showed good improvement with IV cefepime, Levaquin along with gentle diuresis. She was also evaluated by Pulmonary, Dr. Esquivel. The antibiotics were switched to oral yesterday. Lasix will be changed to as needed. She will monitor fluid restriction 2 L per day along with daily weight monitoring. She has been cleared by Pulmonary for discharge. Her weight on the day of discharge is 85 pounds from 89 pounds yesterday. Plan was discussed with the patient and the family at the bedside. They stated understanding. FINAL DIAGNOSES: 1. Acute hypoxic respiratory failure. 2. Acute on chronic diastolic heart failure exacerbation. 3. Sepsis due to healthcare-associated pneumonia, suspected pneumococcal. 4. Acute kidney injury on chronic kidney disease stage 3. Her creatinine improved to 0.82 from 1.56. 5. Chronic anemia. 6. Hypertension. 7. History of Mycobacterium avium intracellulare in the past. 8. Spinal stenosis. 9. Small bilateral pleural effusion due to congestive heart failure. 10. Moderate tricuspid regurgitation, mild mitral regurgitation. 11. History of swallowing difficulty. The patient is currently on regular diet with thin liquids. PLAN: Plan was discussed with the patient and the family in detail, they stated understanding. Total time coordinating discharge 36 mins. Job ID: [id number] MTDD
--- NOTE | 2019-02-03 20:33 | EKG ---
Test Reason : HYPOXIA Blood Pressure : / mmHG Vent. Rate : 081 BPM Atrial Rate : 081 BPM P-R Int : 156 ms QRS Dur : 074 ms QT Int : 376 ms P-R-T Axes : 063 000 061 degrees QTc Int : 436 ms Normal sinus rhythm Septal infarct , age undetermined Abnormal ECG Confirmed by MARIO LORENZO, JARROD ([id number]), script editor OMAR DE LUNA ([id number] on 02/03/2019 8:32:45 PM Referred By: Confirmed By:JARROD MARTIN MD
== END 2019-02-02 09:19 | DRG 871 ==
LOC: ERS 10:26 → T4-A 16:40
PROVIDERS: ADMIT Internal Medicine; ATTEND Internal Medicine
DX: A41.9 Sepsis, unspecified organism (principal); J96.01 Acute respiratory failure with hypoxia; I50.33 Acute on chronic diastolic (congestive) heart failure; J13 Pneumonia due to Streptococcus pneumoniae; I13.0 Hypertensive heart and chronic kidney disease with heart failure and stage 1 through stage 4 chronic kidney disease, or unspecified chronic kidney disease; N17.9 Acute kidney failure, unspecified; S72.001D Fracture of unspecified part of neck of right femur, subsequent encounter for closed fracture with routine healing; Z66 Do not resuscitate; N18.3 Chronic kidney disease, stage 3 (moderate); R13.10 Dysphagia, unspecified; D50.0 Iron deficiency anemia secondary to blood loss (chronic); M48.00 Spinal stenosis, site unspecified; I34.0 Nonrheumatic mitral (valve) insufficiency; Y95 Nosocomial condition; Z86.19 Personal history of other infectious and parasitic diseases
CPT/HCPCS: 36415; 71275; 80053; 81003; 82550; 83605; 83735; 83880; 84100; 84484; 85025; 85610; 85730; 87040; 87086; 93005; 94640; 94760; 96365; 96367; J0692; J1940; J1956; J3370; J7050; J7620; Q9966